=== PATIENT | male | born 2000 | race African-American/Black ===

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

== ENCOUNTER 2022-04-05 19:17 | Emergency (ER) | payer SELFPAY ==
[~2022-04-05] VITALS: Ht 180.3 cm; Wt 68.0 kg
[2022-04-05 19:53] VITALS: BP 131/73
[2022-04-06] MEDS ORDERED: IPRATROPIUM BROMIDE (0.02%) 0.5MG/2.5ML NEB HHN STA (02:58)
[2022-04-06] MEDS ORDERED: ALBUTEROL (0.083%) 2.5MG/3ML NEB HHN STA (02:58)
[2022-04-06] MEDS ORDERED: PREDNISONE 20MG TABLET PO ONE (03:45)
[2022-04-06 04:35] LABS: CLARITY URINE CLEAR (CLEAR); COLOR URINE DARK YELLOW (YELLOW); KETONES URINE NEGATIVE (NEGATIVE); LEUKOCYTE ESTERASE URINE NEGATIVE (NEGATIVE); NITRITE URINE NEGATIVE (NEGATIVE); OCCULT BLOOD URINE 1+ (NEGATIVE); PROTEIN URINE NEGATIVE (NEGATIVE); SPECIFIC GRAVITY URINE 1.027 (1.005-1.030); UROBILINOGEN URINE 0.2 E.U./dL (0.2-1.0)
[2022-04-06] MEDS ORDERED: P50 MT (05:09)
[2022-04-06] MEDS ORDERED: IBUP-2029 MT (05:09)
[2022-04-06] MEDS ORDERED: CYCL5TAB MT (05:09)
== END 2022-04-06 06:42 | disposition home or self-care (01) ==
LOC: ER 19:17
DX: S39.012A Strain of muscle, fascia and tendon of lower back, initial encounter (principal); J45.901 Unspecified asthma with (acute) exacerbation; R31.9 Hematuria, unspecified; X58.XXXA Exposure to other specified factors, initial encounter; Y93.89 Activity, other specified; Y92.89 Other specified places as the place of occurrence of the external cause; Y99.8 Other external cause status; J45.909 Unspecified asthma, uncomplicated; Z20.822 Contact with and (suspected) exposure to COVID-19
CPT/HCPCS: 71045; 81003; 87426; 93005; 99285; J7512; Z7610